=== PATIENT | female | born 1970 | race Caucasian/White ===

== ENCOUNTER 2021-07-09 11:12 | Inpatient (IN) ==
[2021-07-09] MEDS ORDERED: BENZONATATE 100 MG CAPSULE PO ONE (11:48)
[2021-07-09] MEDS ORDERED: KETOROLAC TROMETHAMINE 15 MG/ML VIAL IV ONE (11:48)
[2021-07-09] MEDS ORDERED: SODIUM CHLORIDE 0.9% 500 ML IV ONE (11:48)
--- NOTE | 2021-07-09 11:53 | Emergency Department Note ---
Impression & Plan COVID-19, Hypoxia, Pneumonia due to 2019-nCoV ED Provider Note NAME: HONORIO NESBITT AGE: 51 SEX: F : 1970 ARRIVES VIA: Walk-In INFORMANT: Patient ED PROVIDER(S): Dillon Ochoa DO CHIEF COMPLAINT: shortness of breath HPI: Patient is a 51-year-old female who presents to the ER for upper respiratory symptoms. Her symptoms started this past Thursday. She is Covid positive. She admits to a headache but denies any fevers. Intermittent cough. She notes she is short of breath with coughing. Denies any belly pain but admits to nausea. She has not wanted to eat due to the nausea. No dysuria, urgency, or frequency. She has not vaccinated. No other exacerbating or remitting factors. She was seen by stephane bentley and had a chest x-ray which showed an infiltrate and placed on antibiotics for possible pneumonia. ROS: See above HPI for pertinent positives & negatives. A total of 10 systems reviewed and were otherwise negative. PAST MEDICAL HISTORY:See Below PAST SURGICAL HISTORY:See Below FAMILY HISTORY:See Below SOCIAL HISTORY:See Below HOME MEDICATIONS:See Below ALLERGIES:See Below VITALS:See Below PHYSICAL EXAMINATION: GENERAL: Sitting up in chair, alert, well-appearing, intermittent cough EYE EXAM: normal conjunctiva. PERRL and EOM's grossly intact. OROPHARYNX: no exudate, no erythema, lips, buccal mucosa, and tongue normal and mucous membranes are moist NECK: supple, no nuchal rigidity, no adenopathy, non-tender LUNGS: Diminished bilaterally. Normal chest wall mechanics HEART: no murmurs, S1 normal and S2 normal ABDOMEN: abdomen soft, non-tender, normo-active bowel sounds, no masses, no rebound or guarding. BACK: Back is symmetrical on inspection and there is no deformity, no midline tenderness, no CVA tenderness. SKIN: no rashes and no bruising UPPER EXTREMITIES: upper extremities are grossly normal. LOWER EXTREMITIES: No pitting edema. NEURO EXAM: Normal sensorium, cranial nerves II-XII grossly intact, normal speech, no gross weakness of arms, no gross weakness of legs. MEDICAL DECISION MAKING: Patient is a 51 y/o female with no significant past medical history. IV was established blood was obtained. Labs show no significant leukocytosis or anemia. BMP along with LFTs bilirubin proBNP troponin was unremarkable. Patient was Covid positive. Chest x-ray with bilateral infiltrates. D-dimer was slightly elevated consistent with Covid. Deferred CT angio to the hospitalist as I favor is much less likely that she has PEs with the current diagnosis and chest x-ray. Patient was given steroids and fluids. Updated bedside. Remained on 2 L nasal cannula due to the hypoxia at 81% he was been to the hospitalist. Triage Nursing notes reviewed. Limited review of prior medical records performed Vital Signs: reviewed and remarkable for tachy Differential diagnosis: Differential diagnoses includes but is not limited to pneumonia, bronchitis, COPD/Asthma exacerbation, pneumothorax, pulmonary embolism, congestive heart failure, acute coronary syndrome ER treatment provided: See below Diagnostics interpreted by me: ECG: Sinus rhythm rate 88 Normal axis No PVCs QTC 408 Cardiac Monitoring: An order was placed for continuous cardiac monitoring. The monitor shows a rate of 80 with sinus rhythm. Laboratory studies: As stated above and show below. Imaging studies: Portable AP upright 1 view of the chest shows bilateral infiltrates Consultation(s): Discussed with hospitalist for further evaluation Procedures: none Critical Care: I have personally spent 32 minutes of critical care time in the direct management of this patient. This includes bedside care, interpretation of diagnostic studies, and testing, discussion with consultants, patient, and family members, and other required patient management activities. This 32 minutes is in excess of all separately billable procedures. Past Med/Surg History Medical History (Updated 07/09/21 @ 17:39 by Dillon Ochoa DO) Obesity Family History (Updated 07/09/21 @ 14:27 by ZENOBIA Hebert) Other Family history non-contributory Social History Smoking Status: Never smoker Second Hand Exposure: No; Do You Dip or Chew Tobacco: No; Hx Alcohol Use: No Hx Substance Use: No Preferred Language: Tajik Communication Ability: Effective Wheel Buffer Required: No Beliefs That Will Affect Care: None Current Living Situation: Family Other Information That Helps Us Care for You: No Feels Safe at Home: Yes Safety Concerns: Feels Safe At This Time Assistive Devices: None Allergies Allergies Allergy/AdvReac Type Severity Reaction Status Date / Time No Known Allergies Allergy Unknown Verified 07/09/21 12:10 Home Meds Home Medications Medication Instructions Recorded Confirmed amoxicillin 500 mg capsule 500 mg PO BID 07/09/21 07/09/21 prednisone 20 mg tablet 40 mg PO BID 07/09/21 07/09/21 Results & Data (ED) Vital Signs Vital Signs - 24 hr 07/09/21 11:12 07/09/21 11:26 07/09/21 11:48 Temperature 36.6 C Temperature Source Temporal Artery Scan Pulse Rate 108 H Pulse Rate [Exercises] 114 H Pulse Rate [Finger] 95 H Pulse Rate [Resting] 100 H Pulse Rhythm [Finger] Pulse Strength [Finger] Respiratory Rate 20 18 Respiratory Rate [Exercises] 24 Respiratory Rate [Resting] 30 H Respiratory Effort / Characteristics Non-Labored Respiratory Depth Normal Normal Blood Pressure 116/70 Blood Pressure [Right Arm] 140/83 Blood Pressure Mean 85 Blood Pressure Mean [Right Arm] 102 Blood Pressure Position [Right Arm] Sitting Pulse Oximetry 92 92 Pulse Oximetry [Exercises] 81 L Pulse Oximetry [Resting] 73 L Oxygen Delivery Method Room Air Room Air Room Air Oxygen Flow Rate Sepsis Recent Fever Within 48 Hours No Sepsis New/Unexplained Change in Mental Status No Sepsis Action Taken by Nursing No Action Required 07/09/21 11:49 07/09/21 13:12 Temperature Temperature Source Pulse Rate Pulse Rate [Exercises] Pulse Rate [Finger] 88 Pulse Rate [Resting] Pulse Rhythm [Finger] Regular Pulse Strength [Finger] Normal Respiratory Rate 25 H Respiratory Rate [Exercises] Respiratory Rate [Resting] Respiratory Effort / Characteristics Respiratory Depth Blood Pressure Blood Pressure [Right Arm] 154/83 H Blood Pressure Mean Blood Pressure Mean [Right Arm] 106 Blood Pressure Position [Right Arm] Pulse Oximetry 90 95 Pulse Oximetry [Exercises] Pulse Oximetry [Resting] Oxygen Delivery Method Room Air Nasal Cannula Oxygen Flow Rate 2 Sepsis Recent Fever Within 48 Hours Sepsis New/Unexplained Change in Mental Status Sepsis Action Taken by Nursing Laboratory Data Result diagrams: 07/09/21 12:52 07/09/21 12:52 Lab Results 07/09/21 07/09/21 07/09/21 Range/Units 12:52 12:52 12:52 WBC 6.18 (4.8-10.8) K/uL RBC 4.05 L (4.2-5.4) M/uL Hgb 12.8 (12.0-16.0) g/dL Hct 39.2 (37-47) % MCV 96.8 (80-100) fL MCH 31.6 (25-34) pg MCHC 32.7 (32-36) g/dL RDW Std Deviation 51.1 H (36.4-46.3) fL RDW Coeff of Sera 14.4 (11.5-14.5) % Plt Count 319 (130-400) K/uL MPV 9.7 (7.4-10.4) fL Immature Gran % (Auto) 0.3 % Neut % (Auto) 80.8 % Lymph % (Auto) 11.3 % Mower % (Auto) 7.4 % Eos % (Auto) 0.0 % Baso % (Auto) 0.2 % Neut # (Auto) 4.99 (1.4-6.5) K/uL Lymph # (Auto) 0.70 L (1.2-3.4) K/uL Mower # (Auto) 0.46 (0.11-0.59) K/uL Eos # (Auto) 0.00 (0-0.5) K/uL Baso # (Auto) 0.01 (0-0.2) K/uL Immature Gran # (Auto) 0.02 (0.00-0.02) K/uL D-Dimer 1720 H* (0-500) ug/L FEU Sodium 135 L (136-145) mmol/L Potassium 4.1 (3.5-5.1) mmol/L Chloride 100 (98-107) mmol/L Carbon Dioxide 29 (21-32) mmol/L Anion Gap 6.0 (3-11) BUN 14 (7-18) mg/dl Creatinine 1.09 (0.6-1.2) mg/dl Est Cr Clr Drug Dosing 81.6 ml/min Est GFR ( Amer) 69.0 ml/min Est GFR (Non-Af Amer) 59.6 ml/min BUN/Creatinine Ratio 12.9 (10-20) Glucose 129 H (70-99) mg/dl Calcium 8.9 (8.5-10.1) mg/dl Ferritin 264.3 (8-388) ng/ml Total Bilirubin 0.4 (0.2-1) mg/dl AST 42 H (15-37) U/L ALT 32 (12-78) U/L Alkaline Phosphatase 78 (45-117) U/L Lactate Dehydrogenase (84-246) U/L Troponin I < 0.015 (0-0.045) ng/ml C-Reactive Protein 5.19 H (0-0.29) mg/dl NT-Pro-B Natriuret Pep 198 (0-450) pg/ml Total Protein 7.9 (6.4-8.2) gm/dl Albumin 2.8 L (3.4-5.0) gm/dl Globulin 5.1 H (2.5-4.0) gm/dl Albumin/Globulin Ratio 0.5 L (0.9-2) Lipase 108 (73-393) U/L Procalcitonin (0-0.5) ng/ml COVID-19 Eval Order SARS-CoV-2 (PCR) (Negative) 07/09/21 07/09/21 07/09/21 Range/Units 12:52 12:55 13:26 WBC (4.8-10.8) K/uL RBC (4.2-5.4) M/uL Hgb (12.0-16.0) g/dL Hct (37-47) % MCV (80-100) fL MCH (25-34) pg MCHC (32-36) g/dL RDW Std Deviation (36.4-46.3) fL RDW Coeff of Sera (11.5-14.5) % Plt Count (130-400) K/uL MPV (7.4-10.4) fL Immature Gran % (Auto) % Neut % (Auto) % Lymph % (Auto) % Mower % (Auto) % Eos % (Auto) % Baso % (Auto) % Neut # (Auto) (1.4-6.5) K/uL Lymph # (Auto) (1.2-3.4) K/uL Mower # (Auto) (0.11-0.59) K/uL Eos # (Auto) (0-0.5) K/uL Baso # (Auto) (0-0.2) K/uL Immature Gran # (Auto) (0.00-0.02) K/uL D-Dimer (0-500) ug/L FEU Sodium (136-145) mmol/L Potassium (3.5-5.1) mmol/L Chloride (98-107) mmol/L Carbon Dioxide (21-32) mmol/L Anion Gap (3-11) BUN (7-18) mg/dl Creatinine (0.6-1.2) mg/dl Est Cr Clr Drug Dosing ml/min Est GFR ( Amer) ml/min Est GFR (Non-Af Amer) ml/min BUN/Creatinine Ratio (10-20) Glucose (70-99) mg/dl Calcium (8.5-10.1) mg/dl Ferritin (8-388) ng/ml Total Bilirubin (0.2-1) mg/dl AST (15-37) U/L ALT (12-78) U/L Alkaline Phosphatase (45-117) U/L Lactate Dehydrogenase 539 H (84-246) U/L Troponin I (0-0.045) ng/ml C-Reactive Protein (0-0.29) mg/dl NT-Pro-B Natriuret Pep (0-450) pg/ml Total Protein (6.4-8.2) gm/dl Albumin (3.4-5.0) gm/dl Globulin (2.5-4.0) gm/dl Albumin/Globulin Ratio (0.9-2) Lipase (73-393) U/L Procalcitonin < 0.05 (0-0.5) ng/ml COVID-19 Eval Order Covid19 at [facility] SARS-CoV-2 (PCR) (Negative) 07/09/21 Range/Units 13:26 WBC (4.8-10.8) K/uL RBC (4.2-5.4) M/uL Hgb (12.0-16.0) g/dL Hct (37-47) % MCV (80-100) fL MCH (25-34) pg MCHC (32-36) g/dL RDW Std Deviation (36.4-46.3) fL RDW Coeff of Sera (11.5-14.5) % Plt Count (130-400) K/uL MPV (7.4-10.4) fL Immature Gran % (Auto) % Neut % (Auto) % Lymph % (Auto) % Mower % (Auto) % Eos % (Auto) % Baso % (Auto) % Neut # (Auto) (1.4-6.5) K/uL Lymph # (Auto) (1.2-3.4) K/uL Mower # (Auto) (0.11-0.59) K/uL Eos # (Auto) (0-0.5) K/uL Baso # (Auto) (0-0.2) K/uL Immature Gran # (Auto) (0.00-0.02) K/uL D-Dimer (0-500) ug/L FEU Sodium (136-145) mmol/L Potassium (3.5-5.1) mmol/L Chloride (98-107) mmol/L Carbon Dioxide (21-32) mmol/L Anion Gap (3-11) BUN (7-18) mg/dl Creatinine (0.6-1.2) mg/dl Est Cr Clr Drug Dosing ml/min Est GFR ( Amer) ml/min Est GFR (Non-Af Amer) ml/min BUN/Creatinine Ratio (10-20) Glucose (70-99) mg/dl Calcium (8.5-10.1) mg/dl Ferritin (8-388) ng/ml Total Bilirubin (0.2-1) mg/dl AST (15-37) U/L ALT (12-78) U/L Alkaline Phosphatase (45-117) U/L Lactate Dehydrogenase (84-246) U/L Troponin I (0-0.045) ng/ml C-Reactive Protein (0-0.29) mg/dl NT-Pro-B Natriuret Pep (0-450) pg/ml Total Protein (6.4-8.2) gm/dl Albumin (3.4-5.0) gm/dl Globulin (2.5-4.0) gm/dl Albumin/Globulin Ratio (0.9-2) Lipase (73-393) U/L Procalcitonin (0-0.5) ng/ml COVID-19 Eval Order SARS-CoV-2 (PCR) POSITIVE A* (Negative) Administered Medications Sodium Chloride (Sodium Chloride 0.9% 10ml Flush) 30 ml IV Q24H PATRICIA Stop: 07/13/21 16:52 Last Admin: 07/09/21 17:21 Dose: 30 ml Documented by: [id number] Discontinued Medications Benzonatate (Benzonatate 100 Mg Capsule) 100 mg PO NOW ONE Stop: 07/09/21 11:49 Last Admin: 07/09/21 13:20 Dose: 100 mg Documented by: [id number] Dexamethasone Sodium Phosphate (DexamethasonePf 10 Mg/Ml Vial) 10 mg IV NOW ONE Stop: 07/09/21 13:23 Last Admin: 07/09/21 13:32 Dose: 10 mg Documented by: [id number] Sodium Chloride (Nss) 500 mls @ 999 mls/hr IV .Q31M ONE Stop: 07/09/21 12:18 Last Infusion: 07/09/21 13:51 Dose: 0 mls/hr Documented by: [id number] Admin: 07/09/21 13:20 Dose: 999 mls/hr Documented by: [id number] Remdesivir 200 mg/ Sodium (Chloride) 250 mls @ 125 mls/hr IV ONE STA; Protocol Stop: 07/09/21 16:09 Last Infusion: 07/09/21 17:05 Dose: 0 mls/hr Documented by: [id number] Admin: 07/09/21 14:58 Dose: 125 mls/hr Documented by: [id number] Ketorolac Tromethamine (Ketorolac Tromethamine 15 Mg/Ml Vial) 15 mg IV NOW ONE Stop: 07/09/21 11:49 Last Admin: 07/09/21 13:20 Dose: 15 mg Documented by: [id number] Imaging Data Radiologist's Impression: Chest X-Ray 07/09/21 11:49 XR chest 1V portable HISTORY: 51 years-old Female Chest Pain acute atypical chest pain COMPARISON: None TECHNIQUE: Portable AP view of the chest FINDINGS: Cardiomediastinal and hilar silhouettes are within normal limits. Extensive bilateral airspace opacities. No pneumothorax, or large pleural effusion. No acute fracture. IMPRESSION: Extensive bilateral airspace opacities compatible with multifocal pneumonia. ACT 112: Negative or not required by law. The above report was generated using voice recognition software. It may contain grammatical, syntax or spelling errors. Electronically signed by: Po Carter M.D. 07/09/2021 1:05 PM Discharge Plan Visit Data Chief Complaint: Shortness of Breath/Dyspnea Stated Complaint: COVID +,SOB,COUGH,REALLY BAD HEADACHE ED Provider: Dillon Ochoa Discharge Problem: COVID-19, Hypoxia, Pneumonia due to 2019-nCoV Patient Disposition: Admitted As Inpatient Discharge Instructions Interventions: ED Discharge Assessment Last Done: 07/09/21 16:08
--- NOTE | 2021-07-09 13:07 | XRay Report ---
XR chest 1V portable HISTORY: 51 years-old Female Chest Pain acute atypical chest pain COMPARISON: None TECHNIQUE: Portable AP view of the chest FINDINGS: Cardiomediastinal and hilar silhouettes are within normal limits. Extensive bilateral airspace opacit ies. No pneumothorax, or large pleural effusion. No acute fracture. IMPRESSION: Extensive bilateral airspace opacities compatible with multifocal pneumonia. ACT 112: Negative or not required by law. The above report was generated using voice recognition software. It may contain grammatical, syntax o r spelling errors. Electronically signed by: Po Carter M.D. 07/09/2021 1:05 PM
[2021-07-09 13:10] LABS: Basophils # (auto) 0.01 K/uL (0-0.2); Basophils % (auto) 0.2 %; Hematocrit (blood only) 39.2 % (37-47); Hemoglobin 12.8 g/dL (12.0-16.0); Immature Granulocytes # (auto) 0.02 K/uL (0.00-0.02); Immature Granulocytes % (auto) 0.3 %; Lymphocytes % (auto) 11.3 %; Mean Corpuscular Hemoglobin 31.6 pg (25-34); Mean Corpuscular Hgb Conc 32.7 g/dL (32-36); Mean Corpuscular Volume 96.8 fL (80-100); Mean Platelet Volume 9.7 fL (7.4-10.4); Monocytes # (auto) 0.46 K/uL (0.11-0.59); Monocytes % (auto) 7.4 %; Neutrophils # (auto) 4.99 K/uL (1.4-6.5); Neutrophils % (auto) 80.8 %; Platelet Count 319 K/uL (130-400); RDW Coefficient of Variation 14.4 % (11.5-14.5); RDW Standard Deviation 51.1 fL (36.4-46.3); Red Blood Count 4.05 M/uL (4.2-5.4); White Blood Count 6.18 K/uL (4.8-10.8)
[2021-07-09] MEDS ORDERED: dexAMETHasone**PF** 10 MG/ML VIAL IV ONE (13:22)
[2021-07-09 13:34] LABS: D Dimer 1720 ug/L FEU (0-500)
[2021-07-09 13:57] LABS: Alanine Aminotransferase 32 U/L (12-78); Albumin Level 2.8 gm/dl (3.4-5.0); Aspartate Aminotransferase 42 U/L (15-37); BUN Creatinine Ratio 12.9 (10-20); Blood Urea Nitrogen 14 mg/dl (7-18); Calcium 8.9 mg/dl (8.5-10.1); Carbon Dioxide 29 mmol/L (21-32); Chloride 100 mmol/L (98-107); Creatinine Clr Calc Pharmacy 81.6 ml/min; Est GFR (Non-African American) 59.6 ml/min; Glucose 129 mg/dl (70-99); Lipase 108 U/L (73-393); Potassium 4.1 mmol/L (3.5-5.1); Sodium 135 mmol/L (136-145)
[2021-07-09 14:02] LABS: Albumin Globulin Ratio 0.5 (0.9-2); Alkaline Phosphatase 78 U/L (45-117); Bilirubin,Total 0.4 mg/dl (0.2-1); Globulin 5.1 gm/dl (2.5-4.0); Total Protein 7.9 gm/dl (6.4-8.2); Troponin I < 0.015 ng/ml (0-0.045)
[2021-07-09] MEDS ORDERED: REMDESIVIR 200 MG in SODIUM CHLORIDE 0.9% 210 ML IV STA (14:10)
--- NOTE | 2021-07-09 14:19 | History & Physical Report ---
Date of Service July 09, 2021 Assessment & Plan (1) COVID-19: Plan: COVID 19 pneumonia- unvaccinated day 7 of illness - With hypoxia - CT noncontrast chest pending on admission - Decadron 6mg IV daily x5 days- blood glucose checks AC/HS while on steroids- Add sliding scale inslulin if BG x2 consecutive >180 - Famotidine while on Decadron - Azithromycin 500mg PO now and then 250mg daily - Remdisivir therapy- follow renal and LFT - CRP; ESR; LDH; Ferritin; Fibrinogen; BNP - pending on admission - PCT- pending on admission - Self rotational therapy - Albuterol 2puffs q6 prn, albuterol nebulizers q4 prn - Oxygen support - NC at this time - Follow CRP and Oxygenation requirements- may be baricitinib candidate (2) Respiratory failure with hypoxia: Plan: Acute hypoxia with respiratory failure with SPO2 81% on room air - CT scan without contrast pending - continue supportive oxygen deliver- NC/oxymask/HFNC/CPAP/BIPAP/INTUBATION - as above (3) Hypoxia: Plan: Secondary to COVID 19- can't rule out superimposed bacterial PNA - as above (4) Obesity: Plan: Morbid obesity with BMI>44 - would benefit from weight loss following acute COVID illness to reduce CV morbidity effects (5) DVT prophylaxis: Plan: Lovenox 0.5mg/kg/BID -Diet regular - Dispo medical telemetry with isolation precauations History of Present Illness Primary Care Provider: Sudheer Ruvalcaba MD 51 YOF with no reported medical history and on no chronic medications at home. Patient comes in today for declination in respiratory status with known COVID 19. Patient started feeling ill on with sinus congestion and headache. She works at [employer] and endorses that 4 of her other co-workers also got sick at that time. She went to urgent care on for COVID test that was POSITIVE. She was given prednisone 40mg PO BID and amoxicillin at that time. Patient continued to have headache, dyspnea, fevers and chills and fatigue. She still has her sense of taste and smell. She had 3-4 days of diarrhea that has resolved. She does endorse loss of appetite but has tried to continue to stay up with her hydration, but likely losing most of her hydration with her fevers and sweats and increase in respiratory rate. She also endorses more difficulty breathing with getting up and moving around. Her SPO2 was noted to be in low 80s on room air upon arrival to the [facility]. In the EMD she had routine labs performed to include COVID test and CXR. CXR is notable for extensive bilateral opacities. Patient was placed on 2LNC with increase in SPO2 to 95 % and RR decrease to 22-25. She was given 10mg Decadron in EMD and 500ml of crystalloid. Patient will be admitted for COVID 19 pneumonia, continue Decadron, add Azithromycin, and oxygen therapy with titration to keep SPo2 >92%. We discussed the therapies available to her at this time to include steroids, self proning and rotation therapy, and bronchodilators. We discussed Remdisivir therapy as she is at day 7 of illness and she would like to receive this. Patient is not vaccinated and her COVID test on admission is: POSITIVE Allergies Allergy/AdvReac Type Severity Reaction Status Date / Time No Known Allergies Allergy Unknown Verified 07/09/21 12:10 Home Medications Medication Instructions Recorded Confirmed Type amoxicillin 500 mg capsule 500 mg PO BID 07/09/21 07/09/21 History prednisone 20 mg tablet 40 mg PO BID 07/09/21 07/09/21 History Past Med/Surg History Medical History Obesity Family History (Updated 07/09/21 @ 14:27 by ZENOBIA Hebert) Other Family history non-contributory Social History Smoking Status: Never smoker Second Hand Exposure: No; Do You Dip or Chew Tobacco: No; Hx Alcohol Use: No Hx Substance Use: No Preferred Language: Kiswahili Communication Ability: Effective Plastic Eye Technician Required: No Beliefs That Will Affect Care: None Current Living Situation: Family Other Information That Helps Us Care for You: No Feels Safe at Home: Yes Safety Concerns: Feels Safe At This Time Assistive Devices: None Review of Systems Review of Systems: REVIEW OF SYSTEMS: Constitutional: (+) fever, sweats or chills Eyes: No diplopia, no worsening or blurred vision ENT: normal hearing, no trouble swallowing Respiratory: (+) cough, sputum, dyspnea at rest or on exertion Cardiovascular: No chest pain, tightness or palpitations Abdomen: No pain, nausea, vomiting, diarrhea or constipation Musculoskeletal: No joint pain, calf pain, swelling Neurologic: No weakness, numbness/tingling, or balance problems Psychiatric: No anxiety or depression Skin: No rash or itch Physical Exam Physical Exam: PHYSICAL EXAM: General: awake, alert, fatigued and anxious appearing Head: Normocephalic, atraumatic ENT: PERRL, EOMI, no pharyngeal exudate, mucous membranes moist Neuro: AAO x 3, speech clear and appropriate, strength intact bilaterally 5/5, sensation intact and equal all extremities and dermatomes, no pronator drift Chest: equal rise and fall of the chest, tachypnea, decrease air movement in bases with scattered rhonchi, on 2LNC Cardiac: Regular rate and rhythm, telemetry reviewed-NSR, skin warm dry, cap refill <3 seconds, peripheral pulses +2 no JVD, no murmur, no edema GI: NABS x 4 quadrants, soft, nontender to palpation, no rebound, guarding or tenderness : Spontaneously voiding, no pain, no CVA tenderness, Extremities: Normal inspection, no peripheral edema or erythema, calfs nontender to palpation Psych: Normal mood and affect Skin: no rash or erythema Results & Data Results & Data ([facility]) Vital Signs (Past 12 Hours) Vital Signs Temp Pulse Pulse Pulse Pulse Resp Resp 07/09/21 13:12 88 25 H 07/09/21 11:49 07/09/21 11:48 114 H 100 H 24 07/09/21 11:26 36.6 C 108 H 18 07/09/21 11:12 95 H 20 Resp BP BP Pulse Ox Pulse Ox Pulse Ox 07/09/21 13:12 154/83 H 95 07/09/21 11:49 90 07/09/21 11:48 30 H 81 L 73 L 07/09/21 11:26 116/70 92 07/09/21 11:12 140/83 92 Laboratory Results Abnormal lab results 07/09/21 07/09/21 07/09/21 Range/Units 12:52 12:52 12:52 RBC 4.05 L (4.2-5.4) M/uL RDW Std Deviation 51.1 H (36.4-46.3) fL Lymph # (Auto) 0.70 L (1.2-3.4) K/uL D-Dimer 1720 H* (0-500) ug/L FEU Sodium 135 L (136-145) mmol/L Glucose 129 H (70-99) mg/dl AST 42 H (15-37) U/L Albumin 2.8 L (3.4-5.0) gm/dl Globulin 5.1 H (2.5-4.0) gm/dl Albumin/Globulin Ratio 0.5 L (0.9-2) Diagnostic Findings Chest X-Ray 07/09/21 11:49 XR chest 1V portable HISTORY: 51 years-old Female Chest Pain acute atypical chest pain COMPARISON: None TECHNIQUE: Portable AP view of the chest FINDINGS: Cardiomediastinal and hilar silhouettes are within normal limits. Extensive bilateral airspace opacities. No pneumothorax, or large pleural effusion. No acute fracture. IMPRESSION: Extensive bilateral airspace opacities compatible with multifocal pneumonia. ACT 112: Negative or not required by law. The above report was generated using voice recognition software. It may contain grammatical, syntax or spelling errors. Electronically signed by: Po Carter M.D. 07/09/2021 1:05 PM Medications Administered Home Medications amoxicillin 500 mg capsule 500 mg PO BID 07/09/21 [History Confirmed 07/09/21] prednisone 20 mg tablet 40 mg PO BID 07/09/21 [History Confirmed 07/09/21] Active Medications Remdesivir 200 mg/ Sodium (Chloride) 250 mls @ 125 mls/hr IV ONE STA; Protocol Stop: 07/09/21 16:09 Discontinued Medications Benzonatate (Benzonatate 100 Mg Capsule) 100 mg PO NOW ONE Stop: 07/09/21 11:49 Last Admin: 07/09/21 13:20 Dose: 100 mg Documented by: [id number] Dexamethasone Sodium Phosphate (DexamethasonePf 10 Mg/Ml Vial) 10 mg IV NOW ONE Stop: 07/09/21 13:23 Last Admin: 07/09/21 13:32 Dose: 10 mg Documented by: [id number] Sodium Chloride (Nss) 500 mls @ 999 mls/hr IV .Q31M ONE Stop: 07/09/21 12:18 Last Admin: 07/09/21 13:20 Dose: 999 mls/hr Documented by: [id number] Ketorolac Tromethamine (Ketorolac Tromethamine 15 Mg/Ml Vial) 15 mg IV NOW ONE Stop: 07/09/21 11:49 Last Admin: 07/09/21 13:20 Dose: 15 mg Documented by: [id number] ECG Additional Comments: Normal sinus rhythm Possible Left atrial enlargement Cannot rule out Anterior infarct , age undetermined Abnormal ECG No previous ECGs available Code Status & VTE Plan Code Status CODE: FULL VTE: SCDs, Lovenox 0.5mg/kg BID VTE Prophylaxis Plan VTE Prophylaxis will be ordered: Yes Supervising Physician Co-Signing Physician Notes Attending Attestation and Admission Note - Pt seen/examined, chart reviewed, care plan d/w ZENOBIA Mena. I agree w/ the sanchez components of his documentation. 51yo female with morbid obesity but no other medical history presents with worsening pulmonary symptoms due to extensive COVID-19 pneumonia. Hypoxic upon arrival to the ER now requiring NC O2. also sick with COVID and is hospitalized for such. She denies any h/o chronic lung disease. PMH/PSH/allergies/meds/sochx/famhx - reviewed VSS, afebrile, o2 sats low 90s on NC O2 gen - obese, NAD, looks sick and dehydrated; no increased work of breathing mouth - MM dry neck - no JVD heart - RRR, s1 s2, no murmur lungs - extensive b/l basilar rales, airation fair, no wheeze; no increased work of breathing abd - soft NT ND BS+ ext - no edema, pulses 2+ b/l labs reviewed ESR 129 CRP elevated dimer elevated glucose 129 cxr - extensive b/l pneumonia A/P: 1. acute hypoxic resp failure 2nd to COVID-19 pneumonia 2. extensive COVID-19 pneumonia 3. markedly elevated inflammatory markers Dexamethasone, Remdesivir, pulmonary toilet, proning discussed in detail At risk of progression to more severe disease VTE prophy with lovenox labs am Jignesh Roberts MD PG Care Time/CCT Total # of Minutes Spent Total Time Spent with Patient: Total time spent is greater than 50% in coordination of care (as documented) at patient's floor/unit and/or counseling patient: Coding Level of Care Code 93383 Initial Inpt Care Lvl 2 Diagnoses COVID-19 U07.1 Hypoxia R09.02 Obesity E66.9 Respiratory failure with hypoxia J96.91 DVT prophylaxis Z29.9
--- NOTE | 2021-07-09 14:38 | Electrocardiogram Report ---
Test Reason : Blood Pressure : / mmHG Vent. Rate : 088 BPM Atrial Rate : 088 BPM P-R Int : 130 ms QRS Dur : 080 ms QT Int : 338 ms P-R-T Axes : 051 001 024 degrees QTc Int : 408 ms Normal sinus rhythm Possible Left atrial enlargement Abnormal ECG No previous ECGs available Confirmed by Jero Ch ([id number]) on 07/09/2021 2:38:19 PM Referred By: REFERRED SELF Confirmed By:Aj Ch
[2021-07-09] MEDS ORDERED: FAMOTIDINE 20MG/5ML IV PUSH IV SCH (14:45)
--- NOTE | 2021-07-09 15:19 | CT Scan Report ---
CT chest diagnostic wo con CT DOSE: 538.66 mGycm HISTORY: COVID 19 - evaluate for superimposed bacterial infection TECHNIQUE: Multiaxial CT images of the chest were performed without contrast. A dose lowering techni que was utilized adhering to the principles of ALARA. COMPARISON: Chest 07/09/2021. FINDINGS: Extensive multifocal patchy groundglass airspace opacities seen throughout the lungs. This is consistent with the patient's known history of a viral pneumonia. Superimposed bacterial infection would be impossible to exclude by imaging alone. However, there are no areas of lobar consolidation identified. No pleural effusions. No pneumothorax. The central airways are patent. No suspicious lyti c or blastic osseous lesions. Hepatic steatosis. The visualized spleen is unremarkable. Normal esopha nadege. Normal caliber thoracic aorta. The heart is normal in size. No pericardial effusion. Subcentimet er mediastinal lymph nodes do not meet CT criteria for pathologic involvement. No significant hilar l ymphadenopathy. IMPRESSION: 1. Extensive multifocal patchy groundglass airspace opacities seen throughout the lungs consistent wi th the patient's known history of a viral pneumonia. A superimposed bacterial infection would be impo ssible to exclude by imaging alone. 2. Hepatic steatosis. ACT 112: Negative or not required by law. Electronically signed by: Miguel Horton M.D. 07/09/2021 3:18 PM
[2021-07-09 15:53] LABS: C Reactive Protein 5.19 mg/dl (0-0.29); Ferritin 264.3 ng/ml (8-388); NT Pro B Type Natriuretic Pept 198 pg/ml (0-450)
[2021-07-09 16:03] LABS: Fibrinogen 431 mg/dl (184-400)
[2021-07-09] MEDS ORDERED: ALBUTEROL HFA 8 GM INHALER INH PRN (16:51)
[2021-07-09] MEDS ORDERED: ACETAMINOPHEN 325 MG TAB PO PRN (16:51)
[2021-07-09] MEDS ORDERED: ONDANSETRON INJ 2 MG/ML 2 ML VIAL IV PRN (16:51)
[2021-07-09] MEDS ORDERED: AZITHROMYCIN 250 MG TAB PO ONE (16:51)
[2021-07-09] MEDS ORDERED: ALBUTEROL 0.5% NEB SOLN 2.5 MG/0.5 ML VIAL NEB PRN (16:51)
[2021-07-09] MEDS: SODIUM CHLORIDE 0.9% 10ML FLUSH IV SCH (17:21)
[2021-07-09] MEDS: FAMOTIDINE 20 MG in SYRINGE 3 ML IV SCH (18:27)
[2021-07-09] MEDS: ENOXAPARIN INJ 60 MG/0.6 ML SYR SQ SCH (18:28)
[2021-07-10] MEDS: ENOXAPARIN INJ 60 MG/0.6 ML SYR SQ SCH ×2 (06:14→18:42)
[2021-07-10 07:13] LABS: Basophils # (auto) 0.02 K/uL (0-0.2); Basophils % (auto) 0.5 %; Hematocrit (blood only) 38.2 % (37-47); Hemoglobin 12.6 g/dL (12.0-16.0); Immature Granulocytes # (auto) 0.01 K/uL (0.00-0.02); Immature Granulocytes % (auto) 0.2 %; Lymphocytes # (auto) 0.75 K/uL (1.2-3.4); Lymphocytes % (auto) 17.7 %; Mean Corpuscular Volume 94.1 fL (80-100); Mean Platelet Volume 9.8 fL (7.4-10.4); Monocytes # (auto) 0.81 K/uL (0.11-0.59); Monocytes % (auto) 19.1 %; Neutrophils # (auto) 2.64 K/uL (1.4-6.5); Neutrophils % (auto) 62.5 %; Platelet Count 347 K/uL (130-400); RDW Coefficient of Variation 14.1 % (11.5-14.5); RDW Standard Deviation 48.5 fL (36.4-46.3); Red Blood Count 4.06 M/uL (4.2-5.4); White Blood Count 4.23 K/uL (4.8-10.8)
[2021-07-10 07:44] LABS: BUN Creatinine Ratio 16.2 (10-20); Calcium 9.2 mg/dl (8.5-10.1); Creatinine Clr Calc Pharmacy 95.7 ml/min; Est GFR (African American) 84.7 ml/min; Est GFR (Non-African American) 73.1 ml/min; Magnesium 2.6 mg/dl (1.8-2.4); Potassium 4.4 mmol/L (3.5-5.1)
[2021-07-10] MEDS: AZITHROMYCIN 250 MG TAB PO SCH (11:51)
[2021-07-10] MEDS: FAMOTIDINE 20 MG in SYRINGE 3 ML IV SCH (11:51)
[2021-07-10] MEDS: dexAMETHasone 6 MG in SYRINGE 0 ML IV SCH (11:51)
[2021-07-10] MEDS: REMDESIVIR 100 MG in SODIUM CHLORIDE 0.9% 230 ML IV SCH (11:52)
[2021-07-10] MEDS: SODIUM CHLORIDE 0.9% 10ML FLUSH IV SCH (13:24)
--- NOTE | 2021-07-10 17:08 | Hospitalist Progress Note ---
Date of Service July 10, 2021 Assessment & Plan (1) COVID-19: Plan: Acute respiratory failure with hypoxia secondary to COVID 19 pneumonia- unvaccinated day [address] scan chest does not show any pulmonary embolism as well consistent with g round glass opacities of a viral pneumonia - Decadron 6mg IV blood glucose checks AC/HS while on steroids- Add sliding scale insulin if BG x2 consecutive >180 - Famotidine while on Decadron - Azithromycin 500mg PO now and then 250mg daily - Remdisivir therapy- follow renal and LFT - CRP 5.19; ESR 129; LDH; - PCT- <0.05 - Self rotational therapy - Albuterol 2puffs q6 prn, albuterol nebulizers q4 prn - Oxygen support - NC 3l at this time (2) Respiratory failure with hypoxia: Plan: Acute hypoxia with respiratory failure with SPO2 81% on room air - CT scan without contrast pending - continue supportive oxygen deliver- NC/oxymask/HFNC/CPAP/BIPAP/INTUBATION - as above (3) Hypoxia: Plan: Secondary to COVID 19- can't rule out superimposed bacterial PNA - as above (4) Obesity: Plan: Morbid obesity with BMI>44 - would benefit from weight loss following acute COVID illness to reduce CV morbidity effects (5) DVT prophylaxis: Plan: Lovenox 0.5mg/kg/BID -Diet regular - Dispo medical telemetry with isolation precauations Admission and Anticipated Discharge Date Admission Date: July 09, 2021 Subjective Patient feels extremely dyspneic with some chest heaviness. She is nonproductive cough very fatigued Review of Systems Review of Systems: Moderate distress and fatigue no headache, no visual changes no speech or swallowing issues Pleuritic chest pain, pressure or palpitations Persistent shortness of breath, nonproductive cough no abdominal pain, nausea or vomiting, diarrhea or constipation no dysuria, hematuria or frequency no focal joint pain or swelling no back pain, CVA tenderness or radicular pain no bruising, bleeding or rashes no focal signs of weakness or numbness or altered sensation no complaints of anxiety or depression.. Physical Exam Physical Exam: The patient appeared well nourished and normally developed. Vital signs as documented. Head exam is normocephalic atraumatic Neck is without JVD, thyromegaly, or carotid bruits. Lungs are overall poor air movement such as may be some air trapping and some basilar crackles Cardiac exam, Rhythm is regular.. No murmurs, rubs or gallops. Abdominal exam reveals normal bowel sounds, soft non tender, no masses Extremities are nonedematous and both pedal pulses are present Neurologic exam is alert and oriented, no focal loss of strength or sensation Skin is without bruises or rashes Psychologically is without concerns for anxiety or depression Results & Data Results & Data ([facility]) Vital Signs (Past 12 Hours) Vital Signs Temp Pulse Pulse Resp BP Pulse Ox 07/10/21 15:37 97.9 F 58 L 18 123/71 99 07/10/21 08:00 53 L 07/10/21 07:28 98.6 F 58 L 20 138/77 93 PG Care Time/CCT Total # of Minutes Spent Total Time Spent with Patient: Total time spent is greater than 50% in coordination of care (as documented) at patient's floor/unit and/or counseling patient: Coding Level of Care Code 18472 Subseq Hosp Care Lvl 2 Diagnoses COVID-19 U07.1 Respiratory failure with hypoxia J96.91 Hypoxia R09.02 Obesity E66.9 DVT prophylaxis Z29.9
[2021-07-11] MEDS: ENOXAPARIN INJ 60 MG/0.6 ML SYR SQ SCH (06:22)
[2021-07-11 06:24] LABS: Basophils # (auto) 0.01 K/uL (0-0.2); Basophils % (auto) 0.2 %; Hematocrit (blood only) 37.2 % (37-47); Hemoglobin 12.3 g/dL (12.0-16.0); Immature Granulocytes # (auto) 0.01 K/uL (0.00-0.02); Immature Granulocytes % (auto) 0.2 %; Lymphocytes # (auto) 1.07 K/uL (1.2-3.4); Lymphocytes % (auto) 18.4 %; Mean Corpuscular Hemoglobin 30.9 pg (25-34); Mean Corpuscular Hgb Conc 33.1 g/dL (32-36); Mean Corpuscular Volume 93.5 fL (80-100); Mean Platelet Volume 9.8 fL (7.4-10.4); Monocytes # (auto) 0.94 K/uL (0.11-0.59); Monocytes % (auto) 16.2 %; Neutrophils # (auto) 3.79 K/uL (1.4-6.5); Platelet Count 400 K/uL (130-400); RDW Standard Deviation 47.8 fL (36.4-46.3); Red Blood Count 3.98 M/uL (4.2-5.4); White Blood Count 5.82 K/uL (4.8-10.8)
[2021-07-11 07:07] LABS: BUN Creatinine Ratio 19.6 (10-20); Calcium 9.1 mg/dl (8.5-10.1); Est GFR (African American) 76.6 ml/min; Est GFR (Non-African American) 66.1 ml/min; Magnesium 2.5 mg/dl (1.8-2.4); Potassium 3.8 mmol/L (3.5-5.1)
[2021-07-11] MEDS: dexAMETHasone 6 MG in SYRINGE 0 ML IV SCH (09:20)
[2021-07-11] MEDS: AZITHROMYCIN 250 MG TAB PO SCH (09:20)
[2021-07-11] MEDS: FAMOTIDINE 20 MG in SYRINGE 3 ML IV SCH (09:27)
[2021-07-11] MEDS: REMDESIVIR 100 MG in SODIUM CHLORIDE 0.9% 230 ML IV SCH (13:29)
[2021-07-11] MEDS: SODIUM CHLORIDE 0.9% 10ML FLUSH IV SCH (14:26)
--- NOTE | 2021-07-11 17:25 | Discharge Summary ---
Date of Service July 11, 2021 Admission HPI Per Admitting Provider 51 YOF with no reported medical history and on no chronic medications at home. Patient comes in today for declination in respiratory status with known COVID 19. Patient started feeling ill on with sinus congestion and headache. She works at [employer] and endorses that 4 of her other co-workers also got sick at that time. She went to urgent care on for COVID test that was POSITIVE. She was given prednisone 40mg PO BID and amoxicillin at that time. Patient continued to have headache, dyspnea, fevers and chills and fatigue. She still has her sense of taste and smell. She had 3-4 days of diarrhea that has resolved. She does endorse loss of appetite but has tried to continue to stay up with her hydration, but likely losing most of her hydration with her fevers and sweats and increase in respiratory rate. She also endorses more difficulty breathing with getting up and moving around. Her SPO2 was noted to be in low 80s on room air upon arrival to the [facility]. In the [facility] she had routine labs performed to include COVID test and CXR. CXR is notable for extensive bilateral opacities. Patient was placed on 2LNC with increase in SPO2 to 95 % and RR decrease to 22-25. She was given 10mg Decadron in EMD and 500ml of crystalloid. Patient will be admitted for COVID 19 pneumonia, continue Decadron, add Azithromycin, and oxygen therapy with titration to keep SPo2 >92%. We discussed the therapies available to her at this time to include steroids, self proning and rotation therapy, and bronchodilators. We discussed Remdisivir therapy as she is at day 7 of illness and she would like to receive this. Patient is not vaccinated and her COVID test on admission is: POSITIVE Principal Diagnosis acute respiratory failure with hypoxia covid pneumonia Discharge Exam The patient appeared improved Vital signs as documented. Lungs are still with some basilar rales on the right Cardiac exam, Rhythm is regular.. No murmurs, rubs or gallops. Abdominal exam reveals normal bowel sounds, soft non tender, no masses Extremities are nonedematous and both pedal pulses are normal. Neurologic exam is alert and oriented, no focal loss of strength or sensation Skin is without bruises or rashes Psychologically is without concerns for anxiety or depression. Discharge Data Allergies Allergy/AdvReac Type Severity Reaction Status Date / Time No Known Allergies Allergy Unknown Verified 07/09/21 12:10 Consultations 07/09/21 13:38 ED Decision to Admit Stat Ordered Studies 07/09/21 14:24 CT chest diagnostic wo con Routine Hospital Course (1) COVID-19: Acute respiratory failure with hypoxia secondary to COVID 19 pneumonia- unvaccinated day [address] of [address] CT scan chest does not show any pulmonary embolism as well consistent with ground glass opacities of a viral pneumonia -will be sent on home decadron po and complete azithro - Remdisivir therapy- stopped as hypoxia resolved - CRP 5.19; ESR 129; LDH; - PCT- <0.05 - (2) Respiratory failure with hypoxia: Acute hypoxia with respiratory failure with SPO2 81% on room air - CT scan without contrast pending (3) Hypoxia: Secondary to COVID 19- can't rule out superimposed bacterial PNA - azithromycin (4) Obesity: Morbid obesity with BMI>44 - would benefit from weight loss following acute COVID illness to reduce CV morbidity effects Total Time Total Time Spent Total Time Spent (In Minutes): It required greater than 30 minutes to prepare this patient for discharge Discharge Plan Discharge Items Patient Disposition: Home - Self-Care Reason For Visit: COVID 19 Discharge Diagnosis: acute respiratory failure with low oxygen level covid pneumonia Activity: Per Instructions section Activity Comment: rest and recover, no intentional exercise Non-emergency contact: Primary Care Provider Call non-emergency contact if: your symptoms worsen and you have a fever Follow-up/Referrals: Sudheer Ruvalcaba III, MD [Primary Care Provider] - Diet: Regular Addtl Attending Provider Instructions: you should rest and recover, please home isoloate for 11 days from your test result on 07/09, meaning the first day to be out in public or at work to be 1113/21 unless you are still with respiratory symtoms then it should be 48 hours after your last symptom after 07/20/21. Please contact your primary care for a telephone or video visit to occur within one week of discharge Home Isolation COVID-19 Instructions The following information about Home Isolation is from the CDC Website: https://www.cdc.gov/coronavirus/2019-ncov/hcp/nuwcxozp-pvoidfo-youqno.html Stay home except to get medical care People who are mildly ill with COVID-19 are able to isolate at home during their illness. You should restrict activities outside your home, except for getting medical care. Do not go to work, school, or public areas. Avoid using public transportation, ride-sharing, or taxis. Separate yourself from other people and animals in your home People: As much as possible, you should stay in a specific room and away from other people in your home. Also, you should use a separate bathroom, if av ailable. Animals: You should restrict contact with pets and other animals while you are sick with COVID-19, just like you would around other people. Although there have not been reports of pets or other animals becoming sick with COVID-19, it is still recommended that people sick with COVID-19 limit contact with animals until more information is known about the virus. When possible, have another member of your household care for your animals while you are sick. If you are sick with COVID-19, avoid contact with your pet, including petting, snuggling, being kissed or licked, and sharing food. If you must care for your pet or be around animals while you are sick, wash your hands before and after you interact with pets and wear a face mask. Call ahead before visiting your doctor If you have a medical appointment, call the healthcare provider and tell them that you have or may have COVID-19. This will help the healthcare providers office take steps to keep other people from getting infected or exposed. Wear a face mask You should wear a face mask when you are around other people (e.g., sharing a room or vehicle) or pets and before you enter a healthcare providers office. If you are not able to wear a face mask (for example, because it causes trouble breathing), then people who live with you should not stay in the same room with you, or they should wear a face mask if they enter your room. Cover your coughs and sneezes Cover your mouth and nose with a tissue when you cough or sneeze. Throw used tissues in a lined trash can. Immediately wash your hands with soap and water for at least 20 seconds or, if soap and water are not available, clean your hands with an alcohol-based hand marine superintendent that contains at least 60% alcohol. Clean your hands often Wash your hands often with soap and water for at least 20 seconds, especially after blowing your nose, coughing, or sneezing; going to the bathroom; and before eating or preparing food. If soap and water are not readily available, use an alcohol-based hand marine superintendent with at least 60% alcohol, covering all surfaces of your hands and rubbing them together until they feel dry. Soap and water are the best option if hands are visibly dirty. Avoid touching your eyes, nose, and mouth with unwashed hands. Avoid sharing personal household items You should not share dishes, drinking glasses, cups, eating utensils, towels, or bedding with other people or pets in your home. After using these items, they should be washed thoroughly with soap and water. Clean all high-touch surfaces everyday High touch surfaces include counters, tabletops, doorknobs, bathroom fixtures, toilets, phones, keyboards, tablets, and bedside tables. Also, clean any surfaces that may have blood, stool, or body fluids on them. Use a household cleaning spray or wipe, according to the label instructions. Labels contain instructions for safe and effective use of the cleaning product including precautions you should take when applying the product, such as wearing gloves and making sure you have good ventilation during use of the product. Monitor your symptoms Seek prompt medical attention if your illness is worsening (e.g., difficulty manjit athing).Beforeseeking care, call your healthcare provider and tell them that you have, or are being evaluated for, COVID-19. Put on a face mask before you enter the facility. These steps will help the healthcare providers office to keep other people in the office or waiting room from getting infected or exposed. Ask your healthcare provider to call the local or critical access hospital health department. Persons who are placed under active monitoring or facilitated self- monitoring should follow instructions provided by their local health department or occupational health professionals, as appropriate. When working with your local health department check their available hours. If you have a medical emergency and need to call 911, notify the dispatch personnel that you have, or are being evaluated for COVID-19. If possible, put on a face mask before emergency medical services arrive. Discontinuing home isolation Patients with confirmed COVID-19 should remain under home isolation precautions until the risk of secondary transmission to others is thought to be low. The decision to discontinue home isolation precautions should be made on a [id number] basis, in consultation with healthcare providers and state and local health departments. Pending Studies at Discharge: No Stand-Alone Forms: My [facility], Work/School Release, Smoking Cessation Medications and DC Order Prescriptions: New dexamethasone 6 mg tablet 6 mg PO DAILY Qty: 8 RF: 0 azithromycin 250 mg tablet 250 mg PO DAILY 4 Days Qty: 4 RF: 0 Discontinued amoxicillin 500 mg capsule 500 mg PO BID RF: 0 prednisone 20 mg tablet 40 mg PO BID RF: 0 Discharge Orders: Discharge Order (Routine); Ordered 07/11/21 Ordered By: Sebastien Mendoza Admission Data Admit Date/Time: 07/09/21 14:07 Attending Provider: Sebastein Mendoza Admit Provider: Jignesh Roberts Primary Care Provider: Sudheer Ruvalcaba III Other Providers: Jignesh Roberts Other Interventions: Discharge Summary Assessment (RN) Last Done: 07/11/21 14:28 Coding Level of Care Code D/C DAY MANAGEMENT >30 MINS Diagnoses COVID-19 U07.1 Respiratory failure with hypoxia J96.91 Hypoxia R09.02 Obesity E66.9
== END 2021-07-11 15:17 | disposition home or self-care (01) | DRG 177 ==
LOC: ED 11:12 → SUATTDRO 14:07 → 2E 14:07